=== PATIENT | male | born 1955 | race Hispanic/Latino ===

== ENCOUNTER → 2024-11-13 | Day surgery (SDC) | payer OTHER ==
[2024-11-06 14:28] LABS: BASOPHILS # (AUTO) 0.1 (0.0-0.1); BASOPHILS % 0.5 % (0.0-1.0); EOSINOPHILS # (AUTO) 0.1 (0.0-0.4); EOSINOPHILS % 0.8 % (0.0-6.0); HEMATOCRIT 44.9 % (38.2-49.6); HEMOGLOBIN 15.1 g/dL (14.0-18.0); LYMPHOCYTES # (AUTO) 2.4 (1.0-3.2); LYMPHOCYTES % 25.8 % (18.0-39.1); MEAN CORPUSCULAR HEMOGLOBIN 30.9 pg (28-32); MEAN CORPUSCULAR HGB CONC 33.6 g/dL (31-35); MEAN CORPUSCULAR VOLUME 91.8 fL (81-99); MONOCYTES # (AUTO) 1.1 (0.2-0.8); MONOCYTES % 11.1 % (4.4-11.3); NEUTROPHILS # (AUTO) 5.8 (2.1-6.9); NEUTROPHILS % 61.5 % (38.7-80.0); PLATELET COUNT 212 x10e3/uL (140-360); RED BLOOD COUNT 4.89 x10e6/uL (4.3-5.7); RED CELL DISTRIBUTION WIDTH 14.6 % (11.7-14.4); WHITE BLOOD COUNT 9.45 x10e3/uL (4.8-10.8)
[~2024-11-13] MED LIST: BENAZEPRIL-HCT1 EAC1 PO; FENTANYL CITRATE/PF 100MCG/2 ML INJ ONE; LIDOCAINE HCL 2% LOCAL INJ 5 ML SDV VIAL INJ ONE; PROPOFOL IV EMULSION 10 MG/ML 20 ML VIAL ONE; TENORMIN25 MG PO
[2024-11-13] MEDS: LACTATED RINGER'S 1,000 ML ONE (07:37)
[2024-11-13 08:40] VITALS: TEMP 97.6
[2024-11-13 09:00] VITALS: BP 146/80; PULSE 60; RESP 18; O2SAT 99
== END | disposition home or self-care (01) ==
LOC: OR 06:00
PROVIDERS: ATTEND Internal Medicine Gastroenterology
DX: Z12.11 Encounter for screening for malignant neoplasm of colon (principal); K57.30 Diverticulosis of large intestine without perforation or abscess without bleeding; K64.8 Other hemorrhoids; I10 Essential (primary) hypertension; Z78.9 Other specified health status; R00.1 Bradycardia, unspecified; I45.10 Unspecified right bundle-branch block; Z01.810 Encounter for preprocedural cardiovascular examination; Z01.812 Encounter for preprocedural laboratory examination; Z79.899 Other long term (current) drug therapy; Z68.33 Body mass index [BMI] 33.0-33.9, adult; Z71.3 Dietary counseling and surveillance
CPT/HCPCS: 36415; 85025; 93005; G0121; J2003; J2704; J3010; J7121; 45378